=== PATIENT | male | born 1975 | race Caucasian/White ===

== ENCOUNTER 2025-06-08 09:42 | Outpatient (REF) | payer OTHER, SELFPAY ==
[2025-06-08 13:15] LABS: Appearance Urine Clear; Glucose Urine UA Negative (Negative); PH 6.0 (5.0-9.0); Specific Gravity - Urine 1.015 (1.005-1.025)
[2025-06-08 13:37] LABS: Hematocrit 48.8 % (42.0-52.0); Hemoglobin 15.7 g/dl (14.0-18.0); Imm Gran Abs Auto 0.01 X10*3/uL (0.00-0.03); Imm Gran Pct Auto 0.3 % (0.0-0.4); Lymphocytes Absolute Auto 1.9 X10*3/uL (1.2-4.9); MANUAL DIFF FLAG SCAN; Mean Corpuscular HGB Conc 32.2 g/dl (31.0-36.0); Mean Corpuscular Hemoglobin 27.4 pg (27.0-33.0); Mean Corpuscular Volume 85.0 fL (80.0-98.0); NRBC Abs Auto 0.000 X10*3/uL (0.0-0.012); NRBC Pct Auto 0.0 /100WBC (0.0-0.2); Platelet Count 269 X10*3/uL (160-400); Red Blood Count 5.74 X10*6/uL (4.60-5.80); SCAN SMEAR FLAG 1; White Blood Count 3.2 X10*3/uL (4.8-10.8)
[2025-06-08 18:36] LABS: Alanine Aminotransferase 28 U/L (0-40); Albumin Level 4.9 g/dL (3.5-5.0); Alkaline Phosphatase 78 U/L (39-117); Anion Gap 10 (12-20); Aspartate Amino Transferase 28 U/L (5-37); Blood Urea Nitrogen 15 mg/dL (9-16); Calcium 9.4 mg/dL (8.4-10.2); Carbon Dioxide 29 mmol/L (22-29); Chloride 105 mmol/L (96-108); Cholesterol 210 mg/dL (<200); Estimated Glomerular Filt Rate > 60; HDL Cholesterol 43 mg/dL (>40); Magnesium 2.1 mg/dL (1.6-2.6); Potassium 4.2 mmol/L (3.3-5.1); Sodium 140 mmol/L (135-145); Total Protein 7.6 g/dL (6.5-8.0); Triglycerides 183 mg/dL (<150)
[2025-06-08 19:14] LABS: Folate 7.6 ng/mL (> or = 4.0); Vitamin B12 441 pg/mL (200-900)
[2025-06-09 03:52] LABS: HBS Num1 0.33 mIU/mL (0-7.99); HBsAGNum1 0.38 S/CO (0.00-0.99); HIV Num 1 0.06 S/CO (0.00-0.99); Hepatitis B Surface Antigen Negative (Negative); ~HepC Num1 0.13 S/CO (0.00-0.79); ~Hepatitis B Surface Antibody NONREACTIVE (Nonreactive); ~Hepatitis C Antibody Nonreactive (Nonreactive)
[2025-06-12 22:38] LABS: VITAMIN D (1,25 OH) D3 51 pg/mL; Vit D (1,25-Dihydroxy) Total 51 pg/mL (18-72); Vitamin D (1,25 OH) D2 <8 pg/mL
== END 2025-06-08 09:43 | disposition home or self-care (01) ==
LOC: HO.HKASLDS 09:42
PROVIDERS: PCP Student in an Organized Health Care Education/Training Program; Visit Provider Student in an Organized Health Care Education/Training Program
DX: Z13.9 Encounter for screening, unspecified (principal); R22.1 Localized swelling, mass and lump, neck; I10 Essential (primary) hypertension; D17.9 Benign lipomatous neoplasm, unspecified
CPT/HCPCS: 36415; 80053; 80061; 81003; 82570; 82607; 82652; 82746; 83036; 83735; 84443; 85025; 86706; 86803; 87340; 87389

== ENCOUNTER 2025-06-08 09:42 | Outpatient (AMB) | payer OTHER, SELFPAY ==
--- NOTE | 2025-06-08 09:35 | A.OFFPC_ITS ---
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 Hypertension: The patient has a history of hypertension and is on medication prescribed by a previous doctor. He takes amlodipine and bisoprolol and reports that his blood pressure is well-controlled. Prostate nodule: The patient mentioned a prostate nodule Health Maintenance: The patient is establishing care and reports he has not seen a doctor or had blood work done in this area before. He is 50 years old and has never had a colonoscopy. He denies any family history of colon cancer. 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 - Sleep: Reports sleeping well. Family History: - The patient denies a family history of colon cancer. Past Medical History - Hypertension - History of a prostate nodule Health Maintenance - Order comprehensive baseline labs incl uding a CBC, CMP, HbA1c, lipid panel, urinalysis, B12, folate, vitamin D, HIV, and hepatitis B and C. - Recommend colon cancer screening with a stool-based test, as the patient has no family history risk factors. - Schedule a follow-up appointment in tw o weeks to review laboratory results. PFSH Medical History (Updated 06/08/25 @ 10:59 by Ryan Cruz MD) Mass in neck Social History (Updated 06/08/25 @ 09:37 by Jarrod Parekh MA) Housing: House Alcohol intake: current Alcohol intake frequency: a few times a week Patient Tobacco Use Status: Never used Tobacco service: No Current occupational status: employed Cognitive needs: No Hearing needs: No Vision needs: No Questionnaire Thrive Questionnaire Date Thrive assessed: 06/01/25 I am a: Patient What is your living situation today?: I have a steady place to live Within the past 12 months, did the food you bought not last and you didn't have the money to get more?: Never true Within the past 12 months, did you worry whether your food would run out before you got money to buy more?: Never true Do you have trouble paying for medicines?: I choose not to answer this question Do you have trouble getting transportation to medical appointments?: I choose not to answer this question Do you have trouble paying your heating and electricity bill?: I choose not to answer this question Do you have trouble taking care of your child, family member or friend?: I choose not to answer this question Do you have trouble with day-to-day activities such as bathing, preparing meals, shopping, managing finances, etc.?: I choose not to answer this question Are you currently unemployed and looking for a job?: No Are you interested in more education?: Yes Please select the resources that you would like help with: None Currently or been in a relationship where the following occur: No concerns reported THRIVE Score: 0 AUDIT C Alcohol Use Questionnaire (AUDIT-C) 1. How often do you have a drink containing alcohol?: 2-4 times a month 2. How many drinks containing alcohol do you have on a typical day when you are drinking?: 3 or 4 3. How often do you have six or more drinks on one occasion?: Less than monthly Total Score: 4 MINE-7 AMB Questionnaire MINE-7 Feeling nervous, anxious, or on edge: 0 = Not at all Not being able to stop or control worryin = Not at all Worrying too much about different things: 0 = Not at all Trouble relaxin = Not at all Being so restless that it is hard to sit still: 0 = Not at all Becoming easily annoyed or irritable: 0 = Not at all Feeling afraid as if something awful might happen: 0 = Not at all Total MINE-7 score (0-4 normal; 5-9 mild; 10-14 moderate; 15-21 severe): 0 Source: Developed by Drs. Jeramy Smyth, Lupe Preston, Riley Odell and colleagues, with an educational estephania from [employer]. Review of Systems Narrative Review of Systems - General: Denies sleep disturbances. 10-point ROS reviewed and negative except as noted in HPI Physical exam (Primary Care) Vital Signs: Last Vital Signs Temp 98.1 F 06/08/25 09:48 Pulse 55 06/08/25 09:48 Resp 16 06/08/25 09:48 BP 140/82 H 06/08/25 09:48 Pulse Ox 97 06/08/25 09:48 Oxygen Delivery Method Room Air 06/08/25 09:48 BMI result Body Mass Index 29.4 Tobacco/Smoking Status: Tobacco use Status Tobacco use date assessed 06/08/25 06/08/25 09:38 Patient Tobacco Use Status Never used Tobacco 06/08/25 09:54 Thrive Assessment: Date of Thrive Assessment Date Thrive assessed 06/01/25 06/08/25 09:38 Currently or been in a relationship where the following occur: No concerns reported Narrative Physical Exam General: Well-appearing, in no acute distress. Vital signs: Blood pressure 142/82. HEENT: Normocephalic, atraumatic. PERRLA, EOMI. Conjunctiva clear, sclera anicteric. Oropharynx clear, mucous membranes moist. TMs intact bilaterally. Neck: Supple, no lymphadenopathy, no thyromegaly, no JVD or carotid bruits. Cardiovascular: RRR, normal S1/S2, no murmurs, rubs, or gallops. Peripheral pulses 2+ and symmetric. No edema. Respiratory: Lungs clear to auscultation bilaterally, no wheezes, rales, or rhonchi. Normal effort. Abdomen: Soft, non-tender, non-distended. Normoactive bowel sounds. No hepatosplenomegaly, no masses. MSK: Full range of motion, no joint swelling or deformity. Normal gait. Skin: Warm, dry, intact. No rashes, lesions, or pallor. Neuro: Alert and oriented x3. Cranial nerves II-XII intact. Strength 5/5 throughout. Sensation intact. Reflexes 2+ symmetric. Normal coordination and gait. Psych: Appropriate mood and affect. Normal judgment and insight. Coding Level of Care Code New Pt Level 4 (76072) Diagnoses Mass in neck R22.1 Hypertension I10 Lipoma D17.9 Assessment & Plan Assessment & Plan (1) Mass in neck: Code(s): R22.1 - Localized swelling, mass and lump, neck Category: Medical (2) Hypertension: Code(s): I10 - Essential (primary) hypertension (3) Lipoma: Code(s): D17.9 - Benign lipomatous neoplasm, unspecified Plan Consent Patient was informed and verbally consented to the use of an ambient scribe for clinic note documentation during this visit. Plan 1. Hypertension - The patient's blood pressure was measured at 142/82 mmHg during the visit. - Discontinue bisoprolol increase amlodipine to 10mg - Prescribe amlodipine, with the prescription sent to the [facility] pharmacy in [place], to improve blood pressure control. Discussion Notes I discussed with the patient, who is establishing [place], the importance of obtaining baseline laboratory studies to assess his overall health, including kidney and liver function, blood counts, diabetes and cholesterol screening, vitamin levels, and infectious disease screening for HIV and hepatitis. We addressed his hypertension, noting his current blood pressure of 142/82 mmHg. I explained that I will prescribe amlodipine and discontinue bisoprolol, which is not indicated. We also reviewed the need for age-appropriate cancer screening. As he has no family history of colon cancer, I recommended a stool-based test and explained that a colonoscopy would be necessary if the result is positive. The patient agreed to the proposed plan, and we scheduled a follow-up in two weeks to review the lab results. Patient Instructions - Please go to a lab to have your blood drawn for the tests we discussed. - Your prescription for amlodipine has been sent to the [facility] in [place]. - Stop taking the bisoprolol medication. - We have recommended a stool-based test for colon cancer screening. - Please return for a follow-up visit in two weeks to discuss your test results. Medical Decision Making The patient is a 50-year-old male presenting to [facility]. Given his lack of recent medical evaluation, a comprehensive set of baseline labs is warranted to screen for chronic diseases and assess his overall health status. His blood pressure of 142/82 mmHg is elevated, indicating a need to optimize his antihypertensive regimen. He is currently on amlodipine and bisoprolol; however, the indication for bisoprolol is unclear, and it will be discontinued. Amlodipine will be continued to manage his hypertension. For preventative care, colon cancer screening is appropriate given his age. As he has no family history or other high-risk factors, a stool-based screening te st is a reasonable initial approach. A follow-up in two weeks will be critical for reviewing the extensive lab work and assessing his response to the medication change. Total time spent caring for the patient today was 30 minutes. This includes time spent before the visit reviewing the chart, time spent documenting, and time spent reviewing laboratory results, diagnostic imaging, medications, pe rforming a medically necessary evaluation, counseling on diagnoses, care coordination, ordering appropriate tests, ordering appropriate medications, review of tests performed by other providers, reporting test results with the patient, communication with other healthcare providers. Orders: Orders Complete Blood Count Auto Diff Today Z13.9 - Encounter for screening, unspecified US soft tiss head and/or neck Today R22.1 - Localized swelling, mass and lump, neck Hepatitis B Surface Antigen Today Z13.9 - Encounter for screening, unspecified UA CC w/rflx Micro + Cult Today Z13.9 - Encounter for screening, unspecified Vitamin D 1,25 dihydroxy Today Z13.9 - Encounter for screening, unspecified Microalbumin, Random (w Creat) Today Z13.9 - Encounter for screening, unspecified Comprehensive Met. Panel Today Z13.9 - Encounter for screening, unspecified Hemoglobin A1c Today Z13.9 - Encounter for screening, unspecified Hepatitis B Surface Antibody Today Z13.9 - Encounter for screening, unspecified Hepatitis C Antibody Today Z13.9 - Encounter for screening, unspecified HIV Ab/Ag Today Z13.9 - Encounter for screening, unspecified Lipid Panel Today Z13.9 - Encounter for screening, unspecified Magnesium Today Z13.9 - Encounter for screening, unspecified TSH reflex Free T4 Today Z13.9 - Encounter for screening, unspecified Vitamin B12 and Folate Today Z13.9 - Encounter for screening, unspecified Referrals Cologuard Test Z12.11 - Encounter for screening for malignant neoplasm of colon, Z12.12 - Encounter for screening for malignant neoplasm of rectum Medications: New amlodipine 10 mg PO DAILY 90 tabs 0RF
[2025-06-08 09:48] VITALS: BP 140/82; PULSE 55; RESP 16; TEMP 36.7; O2SAT 97; BMI 29.4
== END 2025-06-08 11:43 | disposition home or self-care (01) ==
LOC: HO.HMCFMS 09:43
PROVIDERS: Visit Provider Student in an Organized Health Care Education/Training Program
DX: R22.1 Localized swelling, mass and lump, neck (principal); I10 Essential (primary) hypertension; D17.9 Benign lipomatous neoplasm, unspecified

== ENCOUNTER 2025-06-24 15:45 | Outpatient (AMB) | payer OTHER, SELFPAY ==
--- NOTE | 2025-06-24 15:48 | A.OFFPC_ITS ---
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 Hyperlipidemia: The patient was found to have elevated serum lipid levels on recent laboratory testing. Triglycerides were measured at 183 mg/dL, total cholesterol at 210 mg/dL, and low-density lipoprotein (LDL) cholesterol at 131 mg/dL. The patient has a history of consuming sugary drinks and sweets, which has been associated with the elevated triglycerides. The timeline of lipid elevation corresponds with dietary habits high in sugars. Essential Hypertension: The patient has a medical history of hypertension previously managed with bisoprolol, which has been discontinued recently. Following the cessation of this medication, his blood pressure has shown improvement, suggesting potential normalization of blood pressure levels over time. History of elevated PSA In [facility] patient had an elevated PSA which led to a prostate biopsy as per patient the results were benign but was told to monitor his PSA he is requesting a PSA at this time Medications: - Bisoprolol: Previously taken for hyper tension, recently discontinued. Social History: - Diet: Patient's diet includes high con sumption of sugary drinks and sweets, correlated with elevated triglyceride levels. Diagnostic Results: - Labs: - Diabetes screen: No evidence o f diabetes. - Comprehensive Metabolic Panel: Normal levels of calcium, magnesium, and liver function. - Lipid Panel: Elevated triglycerides (1 83 mg/dL), total cholesterol (210 mg/dL), and LDL cholesterol (131 mg/dL). Past Medical History - Essential Hypertension: Previously raghavendra ated with bisoprolol. Health Maintenance - Reviewed laboratory results with the [facility], noting elevated lipid levels. - Provided counseling on dietary modific ation to address hyperlipidemia. [facility] Medical History (Updated 06/25/25 @ 09:52 by Ryan Cruz MD) History of elevated PSA Hyperlipidemia Essential hypertension Mass in neck Surgical History (Updated 06/25/25 @ 09:52 by Ryan Cruz MD) History of prostate biopsy Social History (Updated 06/24/25 @ 15:54 by Troy Rooney CMA) Housing: House Alcohol intake: current Alcohol intake frequency: a few times a week Patient Tobacco Use Status: Never used Tobacco service: No Current occupational status: employed Cognitive needs: No Hearing needs: No Vision needs: No Questionnaire Thrive Questionnaire Date Thrive assessed: 06/01/25 I am a: Patient What is your living situation today?: I have a steady place to live Within the past 12 months, did the food you bought not last and you didn't have the money to get more?: Never true Within the past 12 months, did you worry whether your food would run out before you got money to buy more?: Never true Do you have trouble paying for medicines?: I choose not to answer this question Do you have trouble getting transportation to medical appointments?: I choose not to answer this question Do you have trouble paying your heating and electricity bill?: I choose not to answer this question Do you have trouble taking care of your child, family member or friend?: I choose not to answer this question Do you have trouble with day-to-day activities such as bathing, preparing meals, shopping, managing finances, etc.?: I choose not to answer this question Are you currently unemployed and looking for a job?: No Are you interested in more education?: Yes Please select the resources that you would like help with: None Currently or been in a relationship where the following occur: No concerns reported THRIVE Score: 0 Review of Systems Narrative Review of Systems - Endocrine: Denies symptoms or signs of diabetes. 10-point ROS reviewed and negative except as noted in HPI Physical exam (Primary Care) Vital Signs: Last Vital Signs Temp 98.2 F 06/24/25 15:54 Pulse 67 06/24/25 15:54 Resp 17 06/24/25 15:54 BP 135/80 06/24/25 15:54 Pulse Ox 98 06/24/25 15:54 Oxygen Delivery Method Room Air 06/24/25 15:54 BMI result Body Mass Index 29.4 Tobacco/Smoking Status: Tobacco use Status Tobacco use date assessed 06/08/25 06/24/25 15:48 Patient Tobacco Use Status Never used Tobacco 06/24/25 15:54 Thrive Assessment: Date of Thrive Assessment Date Thrive assessed 06/01/25 06/24/25 15:48 Currently or been in a relationship where the following occur: No concerns reported Narrative Physical Exam General: Well-appearing, in no acute distress. Vital signs: Within normal limits. HEENT: Normocephalic, atraumatic. PERRLA, EOMI. Conjunctiva clear, sclera anicteric. Oropharynx clear, mucous membranes moist. TMs intact bilaterally. Neck: Supple, no lymphadenopathy, no thyromegaly, no JVD or carotid bruits. Cardiovascular: RRR, normal S1/S2, no murmurs, rubs, or gallops. Peripheral pulses 2+ and symmetric. No edema. Respiratory: Lungs clear to auscultation bilaterally, no wheezes, rales, or rhonchi. Normal effort. Abdomen: Soft, non-tender, non-distended. Normoactive bowel sounds. No hepatosplenomegaly, no masses. MSK: Full range of motion, no joint swelling or deformity. Normal gait. Skin: Warm, dry, intact. No rashes, lesions, or pallor. Neuro: Alert and oriented x3. Cranial nerves II-XII intact. Strength 5/5 throughout. Sensation intact. Reflexes 2+ symmetric. Normal coordination and gait. Psych: Appropriate mood and affect. Normal judgment and insight. Coding Level of Care Code Est Pt Level 3 (08998) Diagnoses Essential hypertension I10 Hyperlipidemia E78.5 Mass in neck R22.1 History of prostate biopsy Z98.890 History of elevated PSA Z87.898 Screening PSA (prostate specific antigen) Z12.5 Assessment & Plan Assessment & Plan (1) Essential hypertension: Code(s): I10 - Essential (primary) hypertension Category: Medical (2) Hyperlipidemia: Code(s): E78.5 - Hyperlipidemia, unspecified Category: Medical (3) Mass in neck: Code(s): R22.1 - Localized swelling, mass and lump, neck Category: Medical (4) History of prostate biopsy: Code(s): Z98.890 - Other specified postprocedural states Category: Surgical (5) History of elevated PSA: Code(s): Z87.898 - Personal history of other specified conditions Category: Medical (6) Screening PSA (prostate specific antigen): Code(s): Z12.5 - Encounter for screening for malignant neoplasm of prostate Plan Consent Patient was informed and verbally consented to the use of an ambient scribe for clinic note documentation during this visit. Plan 1. Hyperlipidemia - Reviewed laboratory results indicating elevated triglycerides (183 mg/dL), total cholesterol (210 mg/dL), and LDL cholesterol (131 mg/dL). - Discussed and counseled the patient on dietary modifications, specifically reducing consumption of sugary drinks and sweets, to manage elevated lipid levels and reduce cardiovascular risk. 2. Hypertension - Blood pressure has improved following the discontinuation of bisoprolol. - Discussed possible assistance and logistics with the patient for medication management through [facility] pharmacy services, including potential delivery options. Discussion Notes I reviewed the patient's recent laboratory results, which indicated mixed hyperlipidemia with elevated levels of triglycerides, total cholesterol, and LDL cholesterol. We discussed the importance of dietary changes, focusing on reducing the intake of sugary drinks and sweets to manage these levels. The patient was informed about the chronic nature of hyperlipidemia and the necessity for lifestyle modifications to decrease potential cardiovascular risks. Additionally, I noted improvement in the patient's hypertension control after discontinuation of bisoprolol and suggested assistance with potential home delivery services for medications from the pharmacy, emphasizing the importance of continued adherence to monitoring and managing blood pressure. Patient Instructions - Your lab results indicate elevated cholesterol and triglycerides. - Avoid sugary drinks and sweets to help improve these levels. - Your blood pressure has improved since stopping bisoprolol. - Our office can assist you in arranging delivery services for your medications from [facility] pharmacy if needed. Medical Decision Making The patient's laboratory findings reveal hyperlipidemia characterized by elevated triglycerides, total cholesterol, and LDL cholesterol levels, likely influenced by dietary habits high in sugars. The management plan emphasizes tary modification as the primary intervention. The patient understands the chronic nature of this condition, and the plan includes ongoing monitoring of lipid levels and lifestyle interventions aimed at reducing cardiovascular risk. The improvement in blood pressure following bisoprolol discontinuation suggests that current blood pressure management without medication may be adequate, necessitating ongoing assessment of blood pressure levels. The patient will be supported with medication logistics as needed, facilitating ease of access and adherence to any future medication regimens if necessary. Total time spent caring for the patient today was 20 minutes. This includes time spent before the visit reviewing the chart, time spent documenting, and time spent reviewing laboratory results, diagnostic imaging, medications, performing a medically necessary evaluation, counseling on diagnoses, care coordination Orders: Orders PSA,Total (Free>4and<10) 06/24/25 Z13.9 - Encounter for screening, unspecified
[2025-06-24 15:54] VITALS: BP 135/80; PULSE 67; RESP 17; TEMP 36.8; O2SAT 98; BMI 29.4
== END 2025-06-24 16:18 | disposition home or self-care (01) ==
LOC: HO.HMCFMS 15:45
PROVIDERS: PCP Student in an Organized Health Care Education/Training Program; Visit Provider Student in an Organized Health Care Education/Training Program
DX: I10 Essential (primary) hypertension (principal); E78.5 Hyperlipidemia, unspecified; R22.1 Localized swelling, mass and lump, neck; Z98.890 Other specified postprocedural states; Z87.898 Personal history of other specified conditions; Z12.5 Encounter for screening for malignant neoplasm of prostate

== ENCOUNTER → 2025-06-24 15:45 | Outpatient (BNVA) | payer OTHER, SELFPAY | PROVIDERS: PCP Student in an Organized Health Care Education/Training Program; Visit Provider Student in an Organized Health Care Education/Training Program | DX: I10 Essential (primary) hypertension (principal); E78.5 Hyperlipidemia, unspecified; R22.1 Localized swelling, mass and lump, neck; Z87.898 Personal history of other specified conditions; Z98.890 Other specified postprocedural states | CPT/HCPCS: 99212 ==

== ENCOUNTER 2025-06-25 15:07 | Outpatient (REF) | payer OTHER, SELFPAY ==
[2025-06-25 18:33] LABS: PSA,Total (Free>4and<10) 0.65 ng/mL (0.00-4.00)
== END 2025-06-25 15:08 | disposition home or self-care (01) ==
LOC: HO.HKASLDS 15:07
PROVIDERS: PCP Student in an Organized Health Care Education/Training Program; Visit Provider Student in an Organized Health Care Education/Training Program
DX: Z13.89 Encounter for screening for other disorder (principal)
CPT/HCPCS: 36415; 84153

== ENCOUNTER 2025-07-08 15:08 | Outpatient (AMB) | payer OTHER, SELFPAY ==
--- NOTE | 2025-07-08 15:11 | A.OFFPC_ITS ---
Vital Signs 07/08/25 15:15 Height 5 ft 3.98 in Weight 169 lb BMI 29.0 BP 126/69 Blood Pressure Location Rt brachial Position Sitting Respiration 16 Pulse 72 Pulse Source Monitor Temp 97.9 F Temp Source Oral Pulse Oximetry (%) 97 Oxygen Delivery Method Room Air Intake Visit Reasons: 2 wk - lab review Intake Note: lab review Chief Catalyst Operator Required: No Chief Catalyst Operator Name: Doctor speaks citizen of [place] Allergies No Known Allergies Allergy (Verified 07/08/25 15:14) Medication List - Last Reconciled 07/08/25 by Ryan Cruz MD amlodipine 10 mg PO DAILY Tobacco use date assessed: 06/08/25 Dental Screening Dental Screen Date: 06/08/25 HPI HPI Comments History of Present Illness Details History of Present Illness The patient is a 50 year old individual presenting with a review of lab results. Diagnostic Results: - Labs: - Prostate lab result: Low. Past Medical History Health Maintenance - Prostate screening results were review ed and noted to be low. [facility] Medical History (Updated 06/25/25 @ 09:52 by Ryan Cruz MD) History of elevated PSA Hyperlipidemia Essential hypertension Mass in neck Surgical History History of prostate biopsy Social History (Updated 07/08/25 @ 15:15 by Troy Rooney CMA) Housing: House Alcohol intake: current Alcohol intake frequency: a few times a week Patient Tobacco Use Status: Never used Tobacco e-Cigarette/Vaping Use: Never Used service: No Current occupational status: employed Cognitive needs: No Hearing needs: No Vision needs: No Questionnaire Thrive Questionnaire Date Thrive assessed: 06/01/25 I am a: Patient What is your living situation today?: I have a steady place to live Within the past 12 months, did the food you bought not last and you didn't have the money to get more?: Never true Within the past 12 months, did you worry whether your food would run out before you got money to buy more?: Never true Do you have trouble paying for medicines?: I choose not to answer this question Do you have trouble getting transportation to medical appointments?: I choose not to answer this question Do you have trouble paying your heating and electricity bill?: I choose not to answer this question Do you have trouble taking care of your child, family member or friend?: I choose not to answer this question Do you have trouble with day-to-day activities such as bathing, preparing meals, shopping, managing finances, etc.?: I choose not to answer this question Are you currently unemployed and looking for a job?: No Are you interested in more education?: Yes Please select the resources that you would like help with: None Currently or been in a relationship where the following occur: No concerns reported THRIVE Score: 0 Review of Systems Narrative Review of Systems - General: Denies any questions or concerns. 10-point ROS reviewed and negative except as noted in HPI Physical exam (Primary Care) Vital Signs: Last Vital Signs Temp 97.9 F 07/08/25 15:15 Pulse 72 07/08/25 15:15 Resp 16 07/08/25 15:15 BP 126/69 07/08/25 15:15 Pulse Ox 97 07/08/25 15:15 Oxygen Delivery Method Room Air 07/08/25 15:15 BMI result Body Mass Index 29.0 Tobacco/Smoking Status: Tobacco use Status Tobacco use date assessed 06/08/25 07/08/25 15:11 Patient Tobacco Use Status Never used Tobacco 07/08/25 15:15 e-Cigarette/Vaping Use Never Used 07/08/25 15:17 Thrive Assessment: Date of Thrive Assessment Date Thrive assessed 06/01/25 07/08/25 15:11 Currently or been in a relationship where the following occur: No concerns reported Narrative Physical Exam General: Well-appearing, in no acute distress. Vital signs: Within normal limits. HEENT: Normocephalic, atraumatic. PERRLA, EOMI. Conjunctiva clear, sclera anicteric. Oropharynx clear, mucous membranes moist. TMs intact bilaterally. Neck: Supple, no lymphadenopathy, no thyromegaly, no JVD or carotid bruits. Cardiovascular: RRR, normal S1/S2, no murmurs, rubs, or gallops. Peripheral pulses 2+ and symmetric. No edema. Respiratory: Lungs clear to auscultation bilaterally, no wheezes, rales, or rhonchi. Normal effort. Abdomen: Soft, non-tender, non-distended. Normoactive bowel sounds. No hepatosplenomegaly, no masses. MSK: Full range of motion, no joint swelling or deformity. Normal gait. Skin: Warm, dry, intact. No rashes, lesions, or pallor. Neuro: Alert and oriented x3. Cranial nerves II-XII intact. Strength 5/5 throughout. Sensation intact. Reflexes 2+ symmetric. Normal coordination and gait. Psych: Appropriate mood and affect. Normal judgment and insight. Coding Level of Care Code Est Pt Level 3 (48131) Diagnoses Essential hypertension I10 History of elevated PSA Z87.898 Assessment & Plan Assessment & Plan (1) Essential hypertension: Code(s): I10 - Essential (primary) hypertension Category: Medical (2) History of elevated PSA: Code(s): Z87.898 - Personal history of other specified conditions Category: Medical Plan Consent Patient was informed and verbally consented to the use of an ambient scribe for clinic note documentation during this visit. Plan 1. Prostate Cancer Screening - The patient was reassured that the low prostate lab result is a favorable finding and not a cause for concern. Discussion Notes I reviewed the patient's prostate lab results, which were low. I reassured the patient that this is a good result and there is no need to worry. Patient Instructions - Your recent prostate lab result was low, which is a good sign. - There is no need for you to worry about this result. Medical Decision Making The patient presented to review prostate screening lab results. The result was low, which is a normal finding. The patient was reassured, and no further immediate action is required. Total Time Statement 20 min Total time spent caring for the patient today includes pre-visit chart review, documentation, review of laboratory and diagnostic imaging results, medication reconciliation, medically necessary evaluation, counseling on diagnoses, care coordination, ordering appropriate tests and medications, review of tests performed by other providers, reporting test results to the patient, and communication with other healthcare providers.
[2025-07-08 15:15] VITALS: BP 126/69; PULSE 72; RESP 16; TEMP 36.6; O2SAT 97; BMI 29.0
== END 2025-07-08 15:23 | disposition home or self-care (01) ==
LOC: HO.HMCFMS 15:09
PROVIDERS: PCP Physician Assistant; Visit Provider Student in an Organized Health Care Education/Training Program
DX: I10 Essential (primary) hypertension (principal); Z87.898 Personal history of other specified conditions

== ENCOUNTER → 2025-07-08 15:08 | Outpatient (BNVA) | payer OTHER, SELFPAY | PROVIDERS: PCP Physician Assistant; Visit Provider Student in an Organized Health Care Education/Training Program | DX: I10 Essential (primary) hypertension (principal); Z87.898 Personal history of other specified conditions | CPT/HCPCS: 99212 ==